=== PATIENT | female | born 1965 | race Caucasian/White ===

== ENCOUNTER 2025-02-12 11:15 | Emergency (ER) | payer OTHER, SELFPAY ==
[2025-02-12 11:24] VITALS: BP 151/89; PULSE 70; RESP 20; TEMP 36.6; O2SAT 98
--- NOTE | 2025-02-12 11:44 | ED.SKABFB ---
HPI - Skin/Abscess/Foreign Bdy General Chief complaint: Skin/Abscess/Foreign Body Stated complaint: rash on arms Time Seen by Provider: 02/12/25 11:44 Source: patient Mode of arrival: ambulatory Limitations: no limitations History of Present Illness HPI narrative: 51-year-old female presented for complaint of itchy red rash to both arms. Onset approximately 10 days. Rash started after clearing yard debris. Denies pain or drainage. Has tried calamine lotion and witch Celia without much improvement. Says continues to spread down the arms. Denies lip, tongue, or throat swelling, shortness of breath or wheezing. Denies changes to soap, detergent, lotion, or any other exposures. No one else in the house or any contacts with similar symptoms. Related Data Allergies Allergy/AdvReac Type Severity Reaction Status Date / Time No Known Allergies Allergy Unverified 04/05/17 10:56 Review of Systems Review of Systems: CONSTITUTIONAL: Denies body aches, fever, chills, or sweats. EYES: Denies visual changes, redness, or discharge. ENT: Denies rhinorrhea, congestion CARDIOVASCULAR: Denies chest pain, palpitations, or edema. RESPIRATORY: Denies cough or dyspnea. GASTROINTESTINAL: Denies abdominal pain, nausea, vomiting, or diarrhea. SKIN: reports itchy red rash to arms MUSCULOSKELETAL: Denies back pain, joint pain, or myalgia. NEUROLOGIC: Denies headache, numbness, tingling, or weakness. PMFSH Comments At time of signature, I have reviewed and agree with nursing past medical, surgical, social and family history unless otherwise noted. Please see nursing chart for further information. There is no relevant family history pertinent to the presenting complaint Exam Narrative: GENERAL: Well-appearing HEAD: Normocephalic, atraumatic. EYES: conjunctivae clear, and EOMI. ENT: Mucous membranes moist. Oropharynx without edema, erythema or lesions. NECK: Supple. No lymphadenopathy CHEST: Clear to auscultation. HEART: Regular rate and rhythm. SKIN: Warm, dry. Bilateral arms with erythematous vesicular irregular patches to AC area and forearms c/w contact dermatitis NEURO: Alert and oriented x3. Course Course Emergency Course: Patient is aware of diagnosis, understands and agrees to treatment plan. Anticipatory guidance given. Patient agrees to follow-up as directed and is aware of reasons to seek care at the emergency department. Portions of this record may have been created with voice recognition software Level of Care: Express Care Visit Vital Signs Vital signs: Vital Signs Temperature 97.8 F 02/12/25 11:24 Pulse Rate 70 02/12/25 11:24 Respiratory Rate 20 02/12/25 11:24 Blood Pressure 151/89 H 02/12/25 11:24 Pulse Oximetry 98 02/12/25 11:24 Oxygen Delivery Room Air 02/12/25 11:24 Temperature 97.8 F 02/12/25 11:24 Pulse Rate 70 02/12/25 11:24 Respiratory Rate 20 02/12/25 11:24 Blood Pressure 151/89 H 02/12/25 11:24 Pulse Oximetry 98 02/12/25 11:24 Oxygen Delivery Room Air 02/12/25 11:24 Reviewed MDM - Skin/Abscess/Foreign Bdy MDM Narrative Medical decision making narrative: Discussed physical exam findings c/w contact derm, reviewed RX. Advised supportive measures and signs/symptoms to go to the ER. Pt is appropriate for outpt treatment and f/u. Instructed patient to go to nearest ER immediately for any worsening symptoms including but not limited to: fever, spreading rash, pain, sore throat, headache, dizziness, chest pain, trouble breathing, or any symptoms concerning to the patient. Differential Diagnosis Differential diagnosis: Likely abscess of skin or subcutaneous tissue, viral exanthem, dermatophytosis, urticaria, herpes zoster, cellulitis, eczema, insect bites, impetigo and contact dermatitis Discharge Plan Discharge Clinical Impression: Contact dermatitis Patient Disposition: Home Condition: Stable Instructions: Antibiotic Form, Poison [place] ([place]) Additional Instructions: Take steroids as directed. Take an antihistamine such as Zyrtec, Brea or Claritin according to package directions Cool compresses to the sites of itching, avoid hot water. Avoid scratching to reduce the risk of infection Follow up with your primary care provider as needed in 1 week Go to the ER for worsening symptoms or concerns (lip, tongue, throat swelling/itching, trouble breathing etc) Patient Language: Japanese Prescriptions: New prednisone 20 mg tablet 20 mg PO DAILY Qty: 18 0RF Rx Instructions: take 3 tablets daily for 3 days, then 2 tablets daily for 3 days then 1 tablet daily for 3 days Follow-up/Referrals: Vicente,MD Ellie [Primary Care Provider, Unknown] Time of Disposition: 11:51
--- OUTSIDE RECORDS SUMMARY | 2025-02-12 13:24 | XMS_ITS | Clinical Summary ---
Author Organization [facility] Address [address] [place] [address] Phone Care Team Providers Care Life Insurance Agent Name Role Phone Provider, None Primary Care Provider Unavailabl e Allergies No known active allergies Medications azithromycin (ZITHROMAX Z-ANGELICA) 250 MG TabletIndicatio ns:URI with cough and congestion 2 tab(s) daily for 1 day, then 1 tab(s) daily for days 2-5. 6 Tab 08/01/2019 Active fluticasone (FLONASE) 50 MCG/ACT SuspensionIndic ations:URI with cough and congestion 1-2 Sprays by Nasal route daily. Use in each nostril as directed. 1 Bottle 08/01/2019 Active promethazine-de xtromethorphan (PROMETHAZINE-D M) 6.25-15 MG/5ML SyrupIndication s:URI with cough and congestion Take 5 mL by mouth every 4 hours as needed for Cough. 240 mL 08/01/2019 Active Active Problems Problem Noted Date Diagnosed Date Nicotine abuse 06/03/2017 Severe obesity (BMI >= 40) 06/03/2017 Leg swelling 06/03/2017 Xanthelasma 06/03/2017 Family History Medical History Relation Name Comments Diabetes Father Alzheimer's Disease Mother Gout Mother High Cholesterol Mother Hypertension Mother Relation Name Status Comments Father Mother Alive Social History Tobacco Use Types Packs/Day Years Used Date Smoking Tobacco: Light Smoker Cigarettes Smokeless Tobacco: Never Tobacco Cessation:Ready to Q uit: No Alcohol Use Standard Drinks/Week Comments Yes 0 (1 standard drink = 0.6 oz pur e alcohol) Sexually Active Control Partners Comments Yes Male Comments No Sex and Gender Information Value Date Recorded Sex Assigned at Not on file Legal Sex Female 11:22 PM CDT Gender Identity Not on file Sexual Orientation Not on file Last Filed Vital Signs Vital Sign Reading Time Taken Comments Blood Pressure 128/86 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 Pulse 74 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 Temperature 36.8 C (98.3 F) 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 Respiratory Rate 20 09/09/2017 1:15 PM CDT Oxygen Saturation 97% 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 Inhaled Oxygen Concentration - - Weight 152.9 kg (337 lb) 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 Height 177.8 cm (5' 10) 09/09/2017 1:15 PM CDT Body Mass Index 48.35 09/09/2017 1:15 PM CDT Plan of Treatment Health Maintenance Due Date Last Done Comments Hepatitis C Virus (HCV) Screening 1966 TdaP Immunization 1966 Hepatitis B Immunization (1 of 3 - 19+ 3-dose series) 1985 Pap Smear 1987 Cervical Cancer Screening (CCS) 1996 HPV/Cotest 1996 Cologuard 2011 Colonoscopy 2011 Colorectal Cancer Screening 2011 Immunochemical Fecal Occult Blood 2011 Pneumococcal Immunization (5 0+ years) (1 of 1 - PCV) 2016 Zoster Immunization (1 of 2) 2016 Influenza Immunization (#1) 2025 SARS-COV-2 Immunization ( - season) 2025 Respiratory Syncytial Virus (RSV) Immunization (Adult) (1 - 1-dose 75+ series) 2041 Human Papillomavirus (HPV) Immunization Aged Out No longer eligible b ased on patient's age to complete this topic Meningococcal Immunization (ACWY) Aged Out No longer eligible based on patient's age to complete this topic Rotavirus Immunization Aged Out No lo nger eligible based on patient's age to complete this topic Insurance [facility] Care Teams Life Insurance Agent Relationship Specialty Start Date End Date Provider, None LAVELLE PCP - General 11/28/20
== END 2025-02-12 11:58 | disposition home or self-care (01) ==
PROVIDERS: Emergency Provider Nurse Practitioner Family; PCP Family Medicine
DX: L25.9 Unspecified contact dermatitis, unspecified cause (principal)
CPT/HCPCS: 99203; G0463